=== PATIENT | female | born 1955 | race African-American/Black ===

== ENCOUNTER → 2016-11-27 | Day surgery (SDC) | payer BC, OTHER ==
[~2016-11-27] MED LIST: ATOR10TA60 PO; CETI1TAB7 PO; FLUO20CA8 PO; FLUO40CA9 PO; IV RINGERS,LACTATED 1000ML 1,000 ML IV SCH; LIDOCAINE 2% PF Vial for OR 5 ML VIAL. ONE; LISI1TAB5 PO; MULT1CAP15 PO; NAPR500T3 PO; PANT40TA3 PO; PROPOFOL 40 ML IV ONE; ZOLP10TA4 PO; ZOLP5TAB PO
[2016-11-27 08:06] VITALS: BP 116/71
== END | disposition home or self-care (01) ==
LOC: ENDOS 06:05
PROVIDERS: ATTEND Internal Medicine Gastroenterology
DX: K64.0 First degree hemorrhoids (principal); D50.0 Iron deficiency anemia secondary to blood loss (chronic); K57.30 Diverticulosis of large intestine without perforation or abscess without bleeding; K29.50 Unspecified chronic gastritis without bleeding; K31.7 Polyp of stomach and duodenum; K31.89 Other diseases of stomach and duodenum; E78.00 Pure hypercholesterolemia, unspecified; I10 Essential (primary) hypertension; J45.909 Unspecified asthma, uncomplicated; K21.9 Gastro-esophageal reflux disease without esophagitis; M19.90 Unspecified osteoarthritis, unspecified site; F41.9 Anxiety disorder, unspecified; F32.9 Major depressive disorder, single episode, unspecified; Z87.39 Personal history of other diseases of the musculoskeletal system and connective tissue
CPT/HCPCS: 43235; 45378; J2704

== ENCOUNTER → 2017-07-15 | Outpatient (CLI) | payer BC, OTHER ==
[2016-11-27 08:06] VITALS: BP 116/71
[~2017-07-15] MED LIST changes: -IV RINGERS,LACTATED 1000ML 1,000 ML IV SCH; -LIDOCAINE 2% PF Vial for OR 5 ML VIAL. ONE; -NAPR500T3 PO; +NAPR500T4 PO; -PROPOFOL 40 ML IV ONE
--- NOTE | 2017-07-15 15:57 | KCIC ---
MR of the right calf HISTORY: Right lower leg pain. Muscle spasms. 4 weeks of right lateral knee pain. TECHNIQUE: Routine multiplanar sequences are obtained. FINDINGS: Moderate motion degradation. Marrow edema within the shaft of the mid fibula. This occurs over a length of approximately 6 cm. There is a small hypointense component on T1-weighted images at the posterior cortex, may represent a small incomplete nondisplaced fracture. Soft tissue and intramuscular edema surrounds this abnormal segment of the fibula. No evidence of complete or displaced macro fracture. The knee is partially visualized, demonstrating a primary osteoarthritis, severe at medial and patellofemoral joint compartments. There is a knee joint effusion. There is acute subcortical bone marrow edema at the posterior nonweightbearing lateral femoral condyle with mild irregularity of the subchondral bone. Detail is limited due to the motion and off center location, and this could represent a posttraumatic subchondral fracture such as from hyperflexion, osteochondral lesion or even osteonecrosis. There is mild generalized soft tissue and intramuscular edema. IMPRESSION: 1. Abnormal marrow edema within the midshaft of the fibula. Likely considerations include a stress reaction or nondisplaced stress fracture from repetitive microtrauma. Inflammatory or infectious etiology is considered less likely unless supported by clinical presentation. Follow-up with serial radiographs could be of benefit to document evolving callus or periosteal bone formation. 2. Subchondral lesion at the posterior nonweightbearing lateral femoral condyle with edema is nonspecific. Visualization limited due to its off-center location and the motion degradation, but considerations include a subchondral posttraumatic fracture, osteochondral lesion or subchondral osteonecrosis. If further evaluation is warranted, consider MRI or CT of the knee. Electronically signed by: Yong Sharp MD (07/15/2017 3:54 PM) [facility]
== END | disposition home or self-care (01) ==
LOC: KCIC MRI 14:32
PROVIDERS: ATTEND Nurse Practitioner Gerontology
DX: S82.91XA Unspecified fracture of right lower leg, initial encounter for closed fracture (principal); X58.XXXA Exposure to other specified factors, initial encounter; Y93.89 Activity, other specified; Y92.89 Other specified places as the place of occurrence of the external cause; Y99.8 Other external cause status
CPT/HCPCS: 73721

== ENCOUNTER → 2019-08-25 | Day surgery (SDC) | payer OTHER ==
[~2019-08-25] MED LIST changes: +FLUO20CA19 PO; -FLUO20CA8 PO; +IV RINGERS,LACTATED 1000ML 1,000 ML IV ONE; +LISI1TAB19 PO; -LISI1TAB5 PO; +NAPR-514 PO; -NAPR500T4 PO; -PANT40TA3 PO; +PANT40TA77 PO; +PROPOFOL 40 ML IV ONE
[2019-08-25 08:56] VITALS: BP 115/65
--- NOTE | 2019-08-25 10:16 | HP ---
ADMIT DATE: 08/25/2019 REFERRING PHYSICIAN: Filomena Dillard MD REASON FOR CONSULTATION: Anemia and positive PET scan, small bowel. HISTORY OF PRESENT ILLNESS: A 63-year-old female with past medical history significant for hypertension, hyperlipidemia, GERD, as well as non-Hodgkin's lymphoma status post treatment staging, followup exam did reveal positive patent small bowel with anemia. This consultation is requested for EGD and colonoscopy. Last colonoscopy was in 2017, which was unrevealing at that time, she has been maintaining her blood counts and iron infusions. She is otherwise without additional complaints. PAST MEDICAL HISTORY: Non-Hodgkin's lymphoma, hyperlipidemia and hypertension. ALLERGIES: None. MEDICATIONS: Include atorvastatin, cetirizine, ____, hydrochlorothiazide, multivitamins, pantoprazole and zolpidem. FAMILY HISTORY: Significant for breast cancer with her mother, diabetes with her grandfather. Hypertension with both parents and [place] with her father, breast cancer in her mother. SOCIAL HISTORY: Smoker, social drinker. PAST SURGICAL HISTORY: Status post joint replacement and tonsillectomy. REVIEW OF SYSTEMS: Per records. PHYSICAL EXAMINATION: GENERAL: Reveals a well-nourished, well-developed female who is alert, cooperative, in no acute distress. VITAL SIGNS: Temperature 98.1, pulse 86, respiratory rate 20. HEENT: Normocephalic and atraumatic head. Pupils and extraocular muscles are not tested. Sclerae anicteric. NECK: Supple. LUNGS: Clear. CARDIOVASCULAR: Reveals an S1, S2 without S3, S4 or appreciable murmur. ABDOMEN: Soft abdomen, normal bowel sounds, without appreciable hepatosplenomegaly. EXTREMITIES: Reveals no cyanosis, clubbing or edema. IMPRESSION: Anemia with positive PET scan. Differential includes colon gastric cancer, polyps, AVMs, inflammatory bowel disease, recurrent non-Hodgkin's lymphoma. Therefore, recommend upper endoscopy and colonoscopy, if these are unrevealing, a small bowel series and a capsule to follow. ZENOBIA ALVAREZ MD DR: LEONIDES/pedro JOB#: [id number] / [id number] FILOMENA Robert MD
--- NOTE | 2019-08-27 16:06 | PATHOLOGY ---
[facility] Accession Number: [id number] . 01 Material submitted: . duodenum - DUODENAL BIOPSY . 01 Clinical history: . Hx lymphoma . 02 Diagnosis: Duodenal biopsies: - INVOLVEMENT BY FOLLICULAR LYMPHOMA. SEE COMMENT. (JPM:[facility] 08/27/2019) [facility] 08/27/2019 1234 Local . 02 Comment: Sections of the duodenal biopsy reveal an atypical lymphoid proliferation within the lamina propria and submucosa having a follicular architecture. The neoplastic follicles are composed of a fairly uniform proliferation of small cleaved lymphocytes with only a few admixed centroblasts. Small cleaved lymphocytes are also seen outside the follicles infiltrating the lamina propria. A panel of immunoperoxidase stains is obtained on block A1 and yields the following results: . CD20: Atypical lymphoid proliferation positive. CD3: Small population of small lymphocytes positive surrounding and between follicles and few present within neoplastic follicles. CD5: Small lymphocytes positive in a pattern similar to CD3 stain. CD10: Atypical lymphoid infiltrate positive. BCL2: Atypical lymphoid infiltrate positive. BCL6: Atypical lymphoid infiltrate positive. CD23: Follicular dendritic meshwork positive around the periphery of neoplastic follicles. Cyclin D1: Atypical lymphoid infiltrate negative. MUM1: Atypical lymphoid infiltrate negative. Ki-67: Atypical lymphoid infiltrate shows low proliferation index of 10-20%. . 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 The case is also examined by Dr. Culver, who concurs with the diagnosis. The results are discussed with Dr. Mohamud on 08/26/2019. (JPM:[facility] 08/27/2019) . Special stains performed: Immunoperoxidase stains for CD20, CD3, CD5, CD10, BCL2, BCL6, CD23, cyclin D1, MUM1, Ki-67. . 02 Electronically signed: . Roger Bhatia MD, Pathologist NPI- [id number] . 01 Gross description: . Received in formalin labeled "Ara, Bridget, duodenal BX duodenitis," are 4 segments of parker soft tissue measuring 1.3 x 0.9 x 0.3 cm in aggregate dimensions and ranging from 0.3 to 0.4 cm in maximum dimension. The specimen is submitted entirely in cassette A1. (TSD; 08/25/2019) TOB/TOB 08/25/2019 1946 Local . 02 Pathologist provided ICD-10: C82.99 . 02 CPT . 879868, D36948, Q03757 Specimen Comment: A courtesy copy of this report has been sent to [phone], [phone] Specimen Comment: [id number] Specimen Comment: Report sent to / DR ORTIZ Performed at: 01 [facility] [address], [place] [id number] MD Gabino Esparza MD Phone: [phone] Performed at: 02 [facility] [address] [place], [place] [id number] MD Roger Bhatia MD Phone: [phone]
== END ==
LOC: ENDOS 06:56
PROVIDERS: ATTEND Internal Medicine Gastroenterology
DX: D50.0 Iron deficiency anemia secondary to blood loss (chronic) (principal); C82.93 Follicular lymphoma, unspecified, intra-abdominal lymph nodes; K64.0 First degree hemorrhoids; K21.9 Gastro-esophageal reflux disease without esophagitis; I10 Essential (primary) hypertension; E78.5 Hyperlipidemia, unspecified; F17.210 Nicotine dependence, cigarettes, uncomplicated; Z72.89 Other problems related to lifestyle
CPT/HCPCS: 43239; 45378; 88305; 88341; 88342; J2704

== ENCOUNTER → 2019-09-03 | Outpatient (CLI) | payer OTHER ==
[2019-08-25 08:56] VITALS: BP 115/65
[~2019-09-03] MED LIST changes: +BARIUM SULFATE 60% 355 ML SUSP PO ONE; -IV RINGERS,LACTATED 1000ML 1,000 ML IV ONE; -PROPOFOL 40 ML IV ONE
--- NOTE | 2019-09-03 11:31 | RAD ---
Examination: SMALL BOWEL SERIES History: Lymphoma, abdominal mass Comparison/Correlation: None Findings: Client Advocate view is unremarkable. Oral contrast was administered. Moderate-sized hiatal hernia is present. Duodenal bulb distends normally with contrast. Contrast is noted on the initial post oral contrast image to reach the distal ileum. On the 20 minute image, contrast is noted within the colon. There are no suspicious filling defects within small bowel. No stricture identified about the right lower quadrant. Terminal ileum is unremarkable. Minimal diverticulosis of the colon is present. Contrast identified in the rectum. Impression: Rapid transit of oral contrast to the colon in about 20 minutes. No suspicious filling defect, stricture, or other suspicious finding. Minimal diverticulosis of the colon. Electronically signed by: Joel Zaman MD (09/03/2019 11:28 AM) [facility] [place]
== END | disposition home or self-care (01) ==
LOC: RAD 08:05
PROVIDERS: ATTEND Internal Medicine Gastroenterology
DX: K57.30 Diverticulosis of large intestine without perforation or abscess without bleeding (principal); K44.9 Diaphragmatic hernia without obstruction or gangrene; D64.9 Anemia, unspecified; Z85.72 Personal history of non-Hodgkin lymphomas
CPT/HCPCS: 74250

== ENCOUNTER → 2019-10-15 | Outpatient (CLI) | payer OTHER ==
[2019-08-25 08:56] VITALS: BP 115/65
[~2019-10-15] MED LIST changes: -BARIUM SULFATE 60% 355 ML SUSP PO ONE
--- NOTE | 2019-10-15 13:39 | RAD ---
Examination: PET W CT SKULL TO MIDTHIGH History: Lymphoma restaging Comparison/Correlation: 09/11/2018 CT chest abdomen pelvis with contrast FINDINGS: Net dose 14.42 mCi F-18 FDG was administered intravenously for purposes of whole body PET/CT exam. Blood glucose level at the time of radiotracer administration was 97 mg/dL. Hepatic reference uptake is SUV max of 2.5. There is a lymph node measuring 1.8 cm x 1 cm medial to the right mandibular angle with SUV max of 5. Tracheobronchial tree is unremarkable. Moderate-sized hiatal hernia is present. No enlarged thoracic lymph nodes. No abnormal uptake of radiotracer involving the thorax. No infiltrates. Bullae are present and small size involving the left lung base. Old right posterolateral lower rib fracture present. Liver, spleen, pancreas, and adrenal glands are unremarkable. Kidneys are unremarkable. Left renal superior pole cyst is present. Radiotracer is present throughout small bowel in a physiologic distribution. At the left lower abdominal midline region, there is a lymph node or other mass measuring 3.1 cm x 1.7 cm with SUV max of 5.1. This finding is increased in size compared prior exam by approximately 1 cm diameter in the axial plane. Other lymph nodes are present within the mesentery just inferior to this level but are much smaller in size and have SUV max of up to 4.2. There is a mass or enlarged lymph node measuring up to 4.6 cm x 2.5 cm which also is notably increased in size since the prior exam biopsy 2 cm transverse and this is seen on axial image #180 of series 3. This has SUV max of 5.1. Small lymph nodes are present about this level of the mesentery without uptake as well. No ascites or pelvic free fluid. No enlarged low pelvic lymph nodes. No suspicious foci of uptake involving the lower pelvis. Bony structures are unremarkable. Left sacroiliac joint sclerosis noted. Left iliac bone sclerotic lesion which probably represents a bone island is stable. IMPRESSION: Increased size of low abdominal, upper pelvic level mesenteric dominant lymph nodes which have intense uptake compatible with active neoplastic involvement. Slight increase in size and number of smaller lymph nodes in this region also noted. There is an enlarged lymph node with intense uptake compatible with active neoplastic involvement or possibly due to reactive process involving the head medial to the right mandibular angle. No inflammatory findings identified to involve the head to strongly suggest a reactive etiology. Hiatal hernia. PQRS Compliance Statement: One or more of the following individualized dose reduction techniques were utilized for this examination: 1. Automated exposure control 2. Adjustment of the mA and/or kV according to patient size 3. Use of iterative reconstruction technique Electronically signed by: Joel Zaman MD (10/15/2019 1:36 PM) [facility]
== END | disposition home or self-care (01) ==
LOC: PETSC 10:36
PROVIDERS: ATTEND Internal Medicine Hematology & Oncology
DX: C82.88 Other types of follicular lymphoma, lymph nodes of multiple sites (principal); K44.9 Diaphragmatic hernia without obstruction or gangrene; J43.8 Other emphysema; N28.1 Cyst of kidney, acquired; R59.9 Enlarged lymph nodes, unspecified
CPT/HCPCS: 78815; A9552

== ENCOUNTER → 2019-11-08 | Outpatient (CLI) | payer OTHER ==
[~2019-11-08] VITALS: Ht 162.6 cm; Wt 88.0 kg
[2019-11-08] VITALS (8 sets, daily range): BP systolic 83–120; BP diastolic 57–70
[~2019-11-08] MED LIST changes: -FLUO20CA19 PO; +FLUO20CA20 PO; +HEPARIN PF 500 UNIT/5 ML DISP.SYRIN. IVP ONE; +HEPARIN PF 500 UNIT/5 ML DISP.SYRIN. ONE; +LIDOCAINE 1%/EPI 1:100,000 20 ML VIAL. ONE; +LIDOCAINE 1%/EPI 1:100,000 20 ML VIAL. SQ ONE; +LIDOCAINE 2%/EPI 1:100,000 20 ML VIAL. IJ ONE; +MIDAZOLAM HCL/PF 2 MG/2 ML VIAL. IV ONE; +MONT10TA49 PO; +VALA10005 PO; +fentaNYL PF VIAL 100 MCG/2 ML VIAL IV ONE
[2019-11-08 07:27] LABS: BASO # 0.1 x10^3/uL (0.0-0.2); BASO % 2 % (0-3); EOS # 0.7 x10^3/uL (0.0-0.7); EOS % 7 % (0-3); HEMATOCRIT 42.5 % (36.0-47.0); HEMOGLOBIN 14.1 g/dL (12.0-15.5); LYMPH # 1.9 x10^3/uL (1.0-4.8); LYMPH % 20 % (24-48); MEAN CORPUSCULAR HEMOGLOBIN 31 pg (25-35); MEAN CORPUSCULAR HGB CONC 33 g/dL (31-37); MEAN CORPUSCULAR VOLUME 94 fL (79-100); MONO # 0.8 x10^3/uL (0.0-1.1); MONO % 8 % (0-9); NEUT % 63 % (31-73); PLATELET COUNT 404 x10^3/uL (140-400); RED BLOOD COUNT 4.54 x10^6/uL (3.50-5.40); RED CELL DISTRIBUTION WIDTH 13.4 % (11.5-14.5); WHITE BLOOD COUNT 9.5 x10^3/uL (4.0-11.0)
[2019-11-08 07:35] LABS: PROTHROMBIN TIME PATIENT 12.1 SEC (11.7-14.0)
--- NOTE | 2019-11-08 09:35 | PDOC ---
BRIEF OPERATIVE NOTE Pre-Op Diagnosis Lymphoma Post-Op Diagnosis same Procedure Performed Port Surgeon Leonor Anesthesia Type: Conscious Sedation Findings right IJ port suitable for use Complications no immediate ERICA CHAMBERS MD Nov 08, 2019 09:35
--- NOTE | 2019-11-08 09:36 | PDOC ---
MODERATE SEDATION ASSESSMENT RISKS/ALTERNATIVES Risks/Alternatives Risks and alternatives of this type of sedation and procedure discussed with: RISK/ALTERNATIVES: Patient H & P ON CHART H & P H & P on chart and reviewed for co-morbid conditions and appropriate labs. H&P ON CHART: Yes STATUS PREG STATUS ASSESSED: Yes MEDS/ALLERGIES REVIEWED Meds/Allergies Reviewed Medications and Allergies including time and route of recently administered narcotics and sedatives. MEDS/ALLERGIES REVIEWED: Yes ASA RATING ASA RATING: II AIRWAY ASSESSMENT Airway Assessment Airway patency, oral function limitations, presence of caps, crowns, dentures, partials, and ability to extend neck assessed. AIRWAY ASSESSMENT: Yes MALLAMPATI SCORE MALLAMPATI SCORE: II PRE-SEDATION ASSESSMENT PRE-SEDATION ASSESSMENT: Yes ERICA CHAMBERS MD Nov 08, 2019 09:35
--- NOTE | 2019-11-08 16:05 | RAD ---
Procedure: Port-A-Cath placement Clinical Indication: Adult female requiring chemotherapy for lymphoma Sedation: Conscious sedation was administered with a total intraprocedural [id number] time of 30 minutes. The patient was monitored by a qualified independent observer throughout the time of sedation. Please refer to the medical record for exact doses of medications utilized to achieve moderate sedation. Antibiotics: Antibiotic was administered intravenously within 1 hour of the procedure start time. Exposure: Fluoro Time: 0.7 minutes Images: 1 Contrast: None Sterility: All elements of maximal sterile barrier technique including the use of a cap, mask, sterile gown, sterile gloves, large sterile sheet, appropriate hand hygiene, and 2% chlorhexidine for cutaneous antisepsis (or acceptable alternative antiseptic per current guidelines) were followed for this procedure. Consent: The procedure was explained in its entirety to the patient or the patients designated cash posting representative by a member of the treatment team, including a discussion of the risks, benefits and commonly accepted alternatives to the procedure, as well as the expected consequences of no therapy whatsoever. Discussion of the risks included, but was not limited to, those that are most frequent and those that are rare but possibly severe or life-threatening, as well as the possibility of unforeseen complications. Technique and Findings: Ultrasound interrogation of the right neck revealed patency and compressibility of the internal jugular vein. A hardcopy ultrasound image was recorded as a 21-gauge micropuncture needle was used to gain access to this vessel. The needle was exchanged over a wire for a peel-away sheath. The skin over the ipsilateral anterior chest wall was then copiously anesthetized with 1% lidocaine plus epinephrine, and a small dermatotomy was made. Blunt dissection techniques were used to create a pocket for the port. The port was then tunneled subcutaneously towards the neck dermatotomy then deployed under fluoroscopic guidance through the peel-away sheath such that the distal tip resided in the proximal right atrium. The port was accessed and found to flush and aspirate with ease. The port was packed with heparin. The pocket was copiously irrigated with sterile saline then closed with deep interrupted and running subcuticular 4-0 Vicryl suture. Dermabond was used to close the neck dermatotomy. Complications: No immediate Impression: 1. Ultrasound-guided right IJ port placement as described
== END | disposition home or self-care (01) ==
LOC: INTRAD 06:49
PROVIDERS: ATTEND Internal Medicine Hematology & Oncology
DX: C82.88 Other types of follicular lymphoma, lymph nodes of multiple sites (principal); I10 Essential (primary) hypertension; E78.5 Hyperlipidemia, unspecified; J45.909 Unspecified asthma, uncomplicated; K21.9 Gastro-esophageal reflux disease without esophagitis; K44.9 Diaphragmatic hernia without obstruction or gangrene; Z88.8 Allergy status to other drugs, medicaments and biological substances
CPT/HCPCS: 36415; 36561; 76937; 77001; 85025; 85610; C1751; C1769; C1892; J0696; J2250; J3010; J3490; 99152; 99153

== ENCOUNTER → 2020-01-27 | Outpatient (CLI) | payer OTHER ==
[2019-11-08 11:30] VITALS: BP 91/57
[~2020-01-27] MED LIST changes: +CONTRAST GIVEN. MC PRN; -HEPARIN PF 500 UNIT/5 ML DISP.SYRIN. IVP ONE; -HEPARIN PF 500 UNIT/5 ML DISP.SYRIN. ONE; +IOHEXOL 240 MG/ML 50ML VIAL. PO ONE; +IOHEXOL 300 MG/ML 100ML VIAL. IV ONE; -LIDOCAINE 1%/EPI 1:100,000 20 ML VIAL. ONE; -LIDOCAINE 1%/EPI 1:100,000 20 ML VIAL. SQ ONE; -LIDOCAINE 2%/EPI 1:100,000 20 ML VIAL. IJ ONE; -MIDAZOLAM HCL/PF 2 MG/2 ML VIAL. IV ONE; -fentaNYL PF VIAL 100 MCG/2 ML VIAL IV ONE
--- NOTE | 2020-01-27 11:15 | RAD ---
CT chest abdomen and pelvis with contrast: History: Follow-up lymphoma Axial helical images of the chest abdomen and pelvis were obtained after the administration of 75 cc IV Omni 300 contrast. Oral contrast was administered as well. Comparison: October 15, 2019 whole-body PET/CT CT OF THE CHEST WITH IV CONTRAST: There is old rib fractures on the right. There is a small bleb on the left. There is a moderate size hiatal hernia. There is prominence of the distal esophagus which is somewhat tortuous. There is no mediastinal lymphadenopathy or hematoma. Lymphadenopathy: no Thoracic aorta: normal Lungs and pleural margins: clear Impression: 1. Large hiatal hernia. 2. Prominence of the distal esophagus with tortuosity was seen previously appears stable and may be related to the large hernia. 3. Stable appearance of the chest. End Impression CT OF THE ABDOMEN AND PELVIS WITH IV CONTRAST: Liver: Unremarkable Spleen: Unremarkable Pancreas: Unremarkable Adrenal Glands: Unremarkable Kidneys: Small cysts bilaterally Lymphadenopathy: There are few small mesenteric lymph nodes however this appears definitely improved. Free fluid: no. Free air: no. The bladder appears normal. The appendix is normal. The gallbladder appears normal. Impression: Previously seen moderate mesenteric lymphadenopathy has resolved. There are a few small residual mesenteric lymph nodes which are likely normal. End impression PQRS Compliance Statement: One or more of the following individualized dose reduction techniques were utilized for this examination: 1. Automated exposure control 2. Adjustment of the mA and/or kV according to patient size 3. Use of iterative reconstruction technique Electronically signed by: Timothy Magaña III, MD (01/27/2020 11:12 AM) [id number]
== END | disposition home or self-care (01) ==
LOC: CT 08:02
PROVIDERS: ATTEND Internal Medicine Hematology & Oncology
DX: K44.9 Diaphragmatic hernia without obstruction or gangrene (principal); C85.90 Non-Hodgkin lymphoma, unspecified, unspecified site; N28.1 Cyst of kidney, acquired; Z87.81 Personal history of (healed) traumatic fracture
CPT/HCPCS: 71260; 74177; Q9966; Q9967